=== PATIENT | male | born 1950 | race Hispanic/Latino ===

== ENCOUNTER 2021-10-24 07:56 | Day surgery (SDC) | payer MEDICARE ==
[2021-10-24] MEDS ORDERED: HEPARIN 10,000 UNITS/10 ML VIAL ONE (09:28)
[2021-10-24] MEDS ORDERED: HEPARIN/NS 5000 UNIT/500ML 1,000 ML IR ONE (09:28)
[2021-10-24 09:30] LABS: Basophils # (Auto) 0.1 K/mm3 (0.0-0.1); Basophils % (Auto) 0.8 % (0.0-1.8); Eosinophils # (Auto) 0.2 K/mm3 (0.0-0.4); Eosinophils % (Auto) 3.3 % (0.0-4.3); Hematocrit 39.3 % (35.5-45.6); Lymphocytes # (Auto) 1.4 K/mm3 (1.2-5.4); Mean Corpuscular HGB Conc 36 % (32-34); Mean Corpuscular Volume 87 fl (84-94); Monocytes # (Auto) 0.5 K/mm3 (0.0-0.8); Monocytes % (Auto) 6.9 % (0.0-7.3); Platelet Count 297 K/mm3 (140-440); Red Cell Distribution Width 14.8 % (13.2-15.2)
[2021-10-24] MEDS ORDERED: LIDOCAINE (2%) 20 MG/1 ML VIAL 20 ML MDV INFILTRATI ONE (09:31)
[2021-10-24 09:50] LABS: BUN/Creatinine Ratio 20; Blood Urea Nitrogen 18 mg/dL (9-20); Calcium 9.9 mg/dL (8.4-10.2); Hemolysis Index 22
--- NOTE | 2021-10-24 09:59 | Anesthesia Day of Surgery ---
Anesthesia Day of Surgery - Day of Surgery Patient Examined: Yes Patient H&P Reviewed: Yes Patient is NPO: Yes
--- NOTE | 2021-10-24 10:01 | Anesthesia Consultation ---
Anesthesia Consult and Med Hx Date of service: 10/24/21 - Airway Anesthetic Teeth Evaluation: Dentures, Edentulous ROM Head & Neck: Adequate Mental/Hyoid Distance: Adequate Mallampati Class: Class I Intubation Access Assessment: Good - Pre-Operative Health Status ASA Pre-Surgery Classification: ASA3 Proposed Anesthetic Plan: MAC (GA if needed) - Pulmonary Hx Smoking: Yes - Cardiovascular System Hx Hypertension: Yes Hx Peripheral Vascular Disease: Yes - Central Nervous System Hx Psychiatric Problems: Yes (Anxiety) - Gastrointestinal Hx Gastroesophageal Reflux Disease: Yes (Dietary) - Endocrine Hx Non-Insulin Dependent Diabetes: No (Denies; FBS 126) - Other Systems Hx Cancer: No Hx Obesity: No
[2021-10-24 10:10] LABS: INR 0.96 (0.87-1.13); Partial Thromboplastin Time 32.9 Sec. (24.2-36.6)
[2021-10-24] MEDS ORDERED: propofoL 200 MG/20 ML VIAL IV ONE ×4 (10:15→10:16)
[2021-10-24] MEDS ORDERED: ONDANSETRON 4 MG/2 ML INJ ONE (10:15)
[2021-10-24] MEDS ORDERED: HYDROmorphone 1 MG/1 ML INJ ONE (10:15)
[2021-10-24] MEDS ORDERED: LIDOCAINE MPF (2%) 20 MG/1 ML VIAL 5 ML ONE (10:15)
[2021-10-24] MEDS ORDERED: KETAMINE/STERILE WATER 50 MG/ML SYRINGE ONE (10:16)
[2021-10-24] MEDS ORDERED: ePHEDrine SULFATE 50 MG/1 ML INJ ONE (10:16)
[2021-10-24] MEDS ORDERED: ceFAZolin/Water 2 GM/20 ML 2 GM/20 ML SYRINGE IV ONE (10:41)
--- NOTE | 2021-10-24 10:51 | Short Stay Summary ---
Short Stay Documentation Date of service: 10/24/21 Narrative H&P: 70-year-old male with intermittent claudication of the bilateral lower extremities who presents for endovascular revascularization. Risks, benefits, and alternatives were discussed. Patient and family member agreed with procedure. - History Principal diagnosis: Intermittent claudication of the bilateral lower extremities H&P: obtained from office - Allergies and Medications Current Medications: Allergies latex Adverse Reaction (Severe, Verified 10/24/21 09:12) Unknown Home Medications Medication Instructions Recorded Confirmed Last Taken Type Betamethasone Dipro 0.05%(Nf) 1 applicatio TRANSDERMA DAILY 10/24/21 10/24/21 10/23/21 History [Diprosone 0.05% Oint] 1 application Esomeprazole Magnesium [Nexium 20 mg PO PRN PRN 10/24/21 10/24/21 10/13/21 History 24Hr] 20 mg amLODIPine 5 mg PO DAILY 10/24/21 10/24/21 10/24/21 06:00 History 5 mg Active Medications Sodium Chloride (Nacl 0.9% 1000 Ml) 1,000 mls @ 42 mls/hr IV DIRECT CLARI - Physical exam General appearance: no acute distress Lungs: Normal air movement Gastrointestinal: normal Extremities: normal temperature, normal color - Brief post op/procedure progress note Date of procedure: 10/24/21 Pre-op diagnosis: Intermittent claudication Post-op diagnosis: same Procedure: 1. Ultrasound-guided access of the left common femoral artery. 2. Angiography of the left lower extremity. 3. Selection of the abdominal aorta with angiography. 4. Shockwave lithoplasty of the left distal common iliac artery, proximal external iliac artery stenosis with a 7 mm x 60 mm shockwave device 5. Angioplasty of the left distal common iliac artery, proximal external iliac artery with a 8 mm x 40 mm angioplasty 6. Stenting of the left distal common iliac artery and proximal external iliac artery with a 10 mm x 40 mm self-expanding stent postdilated with a 9 mm x 40 mm angioplasty balloon 7. Closure of the left common femoral artery with a 6 Vietnamese Pro style Anesthesia: MAC Surgeon: JAYLAN MARKHAM Estimated blood loss: minimal Condition: stable - Hospital course Hospital course: Tolerated procedure without issue. - Disposition Condition at discharge: Stable Disposition: 01 HOME / SELF CARE / HOMELESS - Discharge Diagnoses (1) Intermittent claudication of both lower extremities due to atherosclerosis Status: Acute Short Stay Discharge Plan Activity: advance as tolerated Weight Bearing Status: Weight Bear as Tolerated Diet: regular Wound: keep clean and dry Follow up with: RIAN MULLINS DO [Primary Care Provider] - 7 Days
[2021-10-24] MEDS: SODIUM CHLORIDE 0.9% 1000 ML 1,000 ML IV SCH ×2 (10:52→12:54)
[2021-10-24] MEDS ORDERED: CLOPIDOGREL 75 MG TAB PO ONE (11:58)
--- NOTE | 2021-10-24 12:27 | Operative Report ---
Operative Report Operative Report: EXAM: 1. Ultrasound-guided access of the left common femoral artery. 2. Angiography of the left lower extremity. 3. Selection of the abdominal aorta with angiography. 4. Shockwave lithoplasty of the left distal common iliac artery, proximal external iliac artery stenosis with a 7 mm x 60 mm shockwave device 5. Angioplasty of the left distal common iliac artery, proximal external iliac artery with a 8 mm x 40 mm angioplasty 6. Stenting of the left distal common iliac artery and proximal external iliac artery with a 10 mm x 40 mm self-expanding stent postdilated with a 9 mm x 40 mm angioplasty balloon 7. Closure of the left common femoral artery with a 6 [place] Pro style DATE: 10/24/2021 SHOE FITTER: JAYLAN MARKHAM MD INDICATION: Left lower extremity severe intermittent claudication MEDICATIONS: Please see nursing report for full details. DEVICES: 7 mm x 60 mm shockwave lithoplasty balloon 8 mm x 40 mm angioplasty balloon 9 mm x 40 mm angioplasty balloon 10 mm x 40 mm self-expanding protg stent CONTRAST: Please see Statistics Professor report for full detail ANESTHESIA: MAC PROCEDURE: Risks, benefits, and alternatives were discussed with the patient; written informed consent was obtained. Patient was brought to the angiography suite and groins were prepped and draped in sterile fashion. The left common femoral artery was evaluated with ultrasound and a healthy portion of the vessel was selected. Under direct ultrasound guidance, the left common femoral artery was accessed with a 21-gauge micropuncture needle. 0.018 inch wire was passed into the left iliac artery needle was exchanged for transitional dilator. Inner dilator and wire were removed and digital subtraction angiography was performed demonstrating patency of the left proximal common iliac artery, and ectasia of the mid common iliac artery with severe 95% stenosis of the left distal common iliac artery. The left internal iliac artery was patent. The left proximalmost external iliac artery had a 90% stenosis. The left mid and distal external iliac artery were patent. Glidewire advantage was then passed through the transitional dilator and into the aorta. Transitional dilator was then exchanged for a 5 [place] sheath. Digital subtraction angiography was performed demonstrating an appropriate puncture, above the bifurcation below the inferior epigastric artery. The upper portion of the left common femoral artery was patent which was accessed. The mid and lower portion had 20 to 30% stenosis. The left profunda femoral artery was patent. After reviewing the imaging, the patient was heparinized. Sheath was exchanged for 6 [place] radiopaque standard sheath. Wire was exchanged for 0.014 inch Choice PT extra-support. 7 mm x 60 mm shockwave angioplasty balloon was used to perform lithoplasty of the left distal common iliac artery and proximal external iliac artery. Digital subtraction an giography demonstrated no dissection with significantly improved flow. Wire was then exchanged for 0.035 inch Glidewire advantage and the balloon was exchanged for an 8 mm x 40 mm angioplasty balloon used to perform angioplasty of the left distal common iliac artery and proximal external iliac artery. Digital subtraction angiography demonstrated a small dissection after angioplasty with improved luminal gain. I then decided to stent the area. 10 mm x 40 mm self-expanding stent was then deployed in the left distal common iliac artery and proximal external iliac artery. This was postdilated with a 9 mm x 40 mm angioplasty balloon. Digital subtraction angiography now demonstrated no residual narrowing of the left distal common iliac artery and proximal external iliac artery stenotic les ion. Digital subtraction angiography was performed demonstrating intermittent 20 to 30% stenotic lesions of the left superficial femoral artery and popliteal artery. There was three-vessel runoff to the proximal to mid calf. The left common femoral artery and profunda femoral artery were unchanged. Compared to the diagnostic images performed previously, this was unchanged. At this point, sheath was removed and exchanged for 6 [place] Pro style which was watched under fluoroscopic guidance to make sure it did not disrupt the newly placed stent. Pro style was then used to close the arteriotomy achieving immediate hemostasis. Sterile dressing and pressure dressing applied. Patient tolerated the procedure well. No immediate postprocedural complications. FINDINGS: Please see procedure note above IMPRESSION: Successful stenting of the left common iliac artery with angioplasty and lithoplasty. Successful stenting of the left external iliac artery with angioplasty and lithoplasty. Successful ultrasound-guided access of the left common femoral artery with Pro style assisted closure
[2021-10-24] MEDS ORDERED: PHENYLEPHRINE/NS 1,000 MCG/10 ML SYRINGE (OR USE) IV ONE (12:28)
[2021-10-24] MEDS ORDERED: CLOPIDOGREL 300 MG TAB PO ONE (12:30)
[2021-10-24] MEDS ORDERED: ALUM-MAG HYDROXIDE-SIMETHICONE 200-200-20MG/5ML ORAL LIQD 30 ML ONE (12:31)
[2021-10-24] MEDS ORDERED: ALUM-MAG HYDROXIDE-SIMETHICONE 200-200-20MG/5ML ORAL LIQD 30 ML PO ONE (12:53)
[2021-10-24] MEDS ORDERED: RIVAROXABAN 2.5 MG TAB PO SCH (13:00)
[2021-10-24 14:30] VITALS: BP 148/55
--- NOTE | 2021-10-24 14:34 | Post Anesthesia Evaluation ---
- Post Anesthesia Evaluation Patient Participated: Yes Airway Patent: Yes Stable Respiratory Function: Yes Nausea/Vomiting: No Temp > 96.8F: Yes Pain Manageable: Yes Adequeate Hydration: Yes Anesthesia Complications: No Block Receding Appropriately: Not Applicable Patient on Ventilator: No
== END 2021-10-24 15:06 | disposition home or self-care (01) ==
LOC: CATHLABREC 07:56
PROVIDERS: ATTEND Radiology Diagnostic Radiology
DX: I70.213 Atherosclerosis of native arteries of extremities with intermittent claudication, bilateral legs (principal); E11.51 Type 2 diabetes mellitus with diabetic peripheral angiopathy without gangrene; E78.00 Pure hypercholesterolemia, unspecified; I10 Essential (primary) hypertension; K21.9 Gastro-esophageal reflux disease without esophagitis; M19.90 Unspecified osteoarthritis, unspecified site; F32.9 Major depressive disorder, single episode, unspecified; F41.9 Anxiety disorder, unspecified; Z98.890 Other specified postprocedural states; Z20.822 Contact with and (suspected) exposure to COVID-19; Z79.899 Other long term (current) drug therapy; Z91.040 Latex allergy status; Z87.891 Personal history of nicotine dependence; Z82.5 Family history of asthma and other chronic lower respiratory diseases; Z80.8 Family history of malignant neoplasm of other organs or systems
CPT/HCPCS: 36415; 37221; 37223; 75625; 75710; 76937; 80048; 85025; 85610; 85730; C1725; C1760; C1769; C1876; C1894; J0690; J1170; J1644; J2370; J2704; J3490; J7030; U0003; J7120; J7121; Q0162; J2405; Q9967